=== PATIENT | female | born 1965 | race Caucasian/White ===

== ENCOUNTER 2018-03-14 15:16 | Emergency (ER) | payer MEDICAID ==
[~2018-03-14] VITALS: Ht 170.2 cm; Wt 78.2 kg
[2018-03-14] MEDS ORDERED: ACETAMINOPHEN 325 MG TAB PO ONE ×2 (15:37→15:38)
[2018-03-14] MEDS ORDERED: IBUPROFEN 600 MG TAB PO ONE (15:37)
[2018-03-14] MEDS ORDERED: SODIUM CHLORIDE 0.9% 1,000 ML IV ONE (16:00)
[2018-03-14 16:19] LABS: Hemoglobin 11.9 g/dL (12.2-16.2); White Blood Cell 7.7 10^3/uL (4.4-10.8)
[2018-03-14 16:20] LABS: Hematocrit 36.7 % (36.0-46.0); Mean Corpuscular Hemoglobin 23.6 pg (28.0-32.0); Mean Corpuscular Hgb Conc. 32.4 g/dL (32.0-36.0); Mean Corpuscular Volume 72.7 fL (80.0-100.0); Platelet Count (auto) 266 10^3/uL (140-450); Red Blood Cells 5.04 10^6/uL (4.0-5.20)
[2018-03-14 16:26] LABS: Red Cell Distribution Width 23.5 % (11.8-14.3)
[2018-03-14 16:27] LABS: Basophils % (manual) 0 (0.0-2.0); Blast Cells 0; Eosinophils % (manual) 0 (0-7); Metamyelocytes % 0; Myelocytes % 0; Promyelocytes % 0; Reactive Lymphocytes 0
[2018-03-14 16:31] LABS: INR 0.95 (0.9-1.15); Partial Thromboplastin Time 24.5 sec (22.64-33.71); Prothrombin Time 10.3 sec (9.37-12.3)
[2018-03-14 16:41] LABS: Alanine Aminotransferase 21 U/L (13-56); Albumin 3.7 g/dL (3.4-5.0); Alkaline Phosphatase 101 U/L (45-117); Amylase 46 U/L (25-115); Anion Gap 10 (5-15); Aspartate Aminotransferase 16 U/L (15-37); BUN/Creatinine Ratio 15.2; Bilirubin, Total 0.4 mg/dL (0.2-1.0); Blood Urea Nitrogen 12 mg/dL (7-18); Calcium 8.7 mg/dL (8.5-10.1); Carbon Dioxide 21 mmol/L (21-32); Chloride 106 mmol/L (98-107); GFR African American 98 mL/min; GFR Non-African American 81 mL/min; Glucose 85 mg/dL (74-106); Lipase 76 U/L (73-393); Potassium 3.8 mmol/L (3.5-5.1); Sodium 137 mmol/L (136-145); Total Protein 7.6 g/dL (6.4-8.2)
[2018-03-14 17:09] LABS: Band Neutrophils % (manual) 9; Lymphocytes % (manual) 4 (10.0-50.0); Monocytes % (manual) 5 (0-12)
[2018-03-14] MEDS ORDERED: cefTRIAXone 1GM/10ml IVPUSH 10 ML IV ONE (17:15)
[2018-03-14 21:06] LABS: Urine Bacteria NONE SEEN /hpf (None Seen); Urine Blood Negative /uL (Negative); Urine WBC 3 /hpf (0 - 5)
[2018-03-14 23:00] VITALS: BP 101/52
== END 2018-03-14 23:50 | disposition home or self-care (01) ==
LOC: ER 15:16
DX: K52.9 Noninfective gastroenteritis and colitis, unspecified (principal); F17.210 Nicotine dependence, cigarettes, uncomplicated
CPT/HCPCS: 36415; 71046; 74176; 80053; 81001; 82150; 83605; 83690; 84484; 85007; 85027; 85610; 85730; 87040; 93005; 96360; 96361; 99285; J7030

== ENCOUNTER 2021-01-12 21:38 | Emergency (ER) | payer MEDICAID ==
[~2021-01-12] VITALS: Ht 167.6 cm; Wt 77.1 kg
[2021-01-13] MEDS ORDERED: ACETAMINOPHEN 325 MG TAB PO ONE (03:15)
[2021-01-13 04:45] VITALS: BP 130/80
== END 2021-01-13 04:33 | disposition home or self-care (01) ==
LOC: ER 21:39
DX: S63.502A Unspecified sprain of left wrist, initial encounter (principal); S86.911A Strain of unspecified muscle(s) and tendon(s) at lower leg level, right leg, initial encounter; S16.1XXA Strain of muscle, fascia and tendon at neck level, initial encounter; G44.209 Tension-type headache, unspecified, not intractable; M47.812 Spondylosis without myelopathy or radiculopathy, cervical region; W18.39XA Other fall on same level, initial encounter; Y93.89 Activity, other specified; Y92.89 Other specified places as the place of occurrence of the external cause; Y99.8 Other external cause status
CPT/HCPCS: 29125; 72125; 73030; 73110; 73562

== ENCOUNTER 2024-04-18 18:13 | Emergency (ER) | payer MEDICAID ==
[~2024-04-18] VITALS: Ht 167.6 cm; Wt 77.0 kg
[2024-04-18 18:14] VITALS: BP 169/77; PULSE 73; RESP 18; TEMP 99.7; O2SAT 96
[2024-04-18] MEDS ORDERED: IBUP-1456 PO (21:50)
[2024-04-18] MEDS ORDERED: PRED20TA2 PO (21:50)
[2024-04-18] MEDS: KETOROLAC TROMETH 60MG/2ML VIAL IM ONE (22:28)
== END 2024-04-18 22:40 | disposition home or self-care (01) ==
LOC: ER 18:13
DX: M54.31 Sciatica, right side (principal); F17.210 Nicotine dependence, cigarettes, uncomplicated; Z88.1 Allergy status to other antibiotic agents
CPT/HCPCS: 73552; 96372; 99283; J1885